=== PATIENT | male | born 1955 | race Caucasian/White ===

== ENCOUNTER → 2024-06-30 10:27 | Outpatient (REF) | payer MEDICARE, OTHER, SELFPAY | LOC: RAD 10:27 | PROVIDERS: ATTENDING PHYSICIAN Physician Assistant | DX: G89.29 Other chronic pain (principal); M25.561 Pain in right knee; M25.562 Pain in left knee | CPT/HCPCS: 73564 ==

== ENCOUNTER → 2024-07-16 10:04 | Outpatient (REF) | payer MEDICARE, OTHER, SELFPAY | LOC: PAVMRI 10:04 | PROVIDERS: ATTENDING PHYSICIAN Orthopaedic Surgery; FAMILY PHYSICIAN Physician Assistant | DX: M25.562 Pain in left knee (principal) | CPT/HCPCS: 73721 ==

== ENCOUNTER 2024-09-06 06:21 | Outpatient (RCR) | payer MEDICARE, OTHER, SELFPAY | END 2024-09-06 23:59 | disposition home or self-care (01) | LOC: RPT 06:21 | PROVIDERS: ATTENDING PHYSICIAN Physician Assistant Medical; FAMILY PHYSICIAN Physician Assistant | DX: M17.0 Bilateral primary osteoarthritis of knee (principal); S83.232A Complex tear of medial meniscus, current injury, left knee, initial encounter; X58.XXXA Exposure to other specified factors, initial encounter; Z73.6 Limitation of activities due to disability | CPT/HCPCS: 97110; 97162 ==

== ENCOUNTER → 2024-09-08 07:13 | Outpatient (REF) | payer MEDICARE, OTHER, SELFPAY | LOC: RCS 07:13 | PROVIDERS: ATTENDING PHYSICIAN Internal Medicine Cardiovascular Disease; FAMILY PHYSICIAN Physician Assistant | DX: I48.0 Paroxysmal atrial fibrillation (principal); I10 Essential (primary) hypertension | CPT/HCPCS: 93306 ==

== ENCOUNTER → 2025-04-20 07:47 | Outpatient (REF) | payer MEDICARE, OTHER, SELFPAY | LOC: SDSPAT 07:47 | PROVIDERS: ATTENDING PHYSICIAN Internal Medicine Cardiovascular Disease; FAMILY PHYSICIAN Physician Assistant; OTHER PHYSICIAN Internal Medicine Cardiovascular Disease | DX: I48.0 Paroxysmal atrial fibrillation (principal) | CPT/HCPCS: 93005 ==

== ENCOUNTER 2025-04-23 09:27 | Day surgery (SDC) | payer MEDICARE, OTHER, SELFPAY ==
[2025-04-20 08:08] VITALS: BMI 36.5
--- NOTE | 2025-04-20 08:20 | HPS.HSE ---
Family Physician
-
Family Physician: INTERVIEWE UNKNOWN - PT NOT
Chief Complaint
-
Paroxysmal atrial fibrillation.
History of Present Illness
The patient is a 69 year old male presenting today for paroxysmal atrial fibrillation. The patient previously underwent pulmonary vein isolation for this diagnosis in May 2008. He was doing relatively well after this procedure, with
only one reported episode of atrial fibrillation in late 2019. This was in the setting of 4-5 diet sodas and a half bottle of whiskey daily. Since then, the patient has significantly lowered his diet soda and is making attempts to lessen his alcohol
intake. Within the last few days however, the patient reports that his atrial fibrillation has returned. He does report recently starting a new job which has been causing him additional stress, likely playing into this. He reports a wide variety of
symptoms associated with his arrhythmia, which include palpitations, nausea, lightheadedness, and fatigue. He is on current pharmacological therapy with Metoprolol Succinate. He was originally on pill in pocket oral anticoagulation. When his atrial
fibrillation recurred, he restarted Eliquis automatically twice a day. He is interested in pursuing with a cardioversion for further arrhythmia management. He denies any current complaints today such as chest pain, shortness of breath, vomiting,
diarrhea, dizziness, cough, sore throat, or fever.
Medical History
Past Medical History
Past Medical History: Reports Other
Additional Past Medical History:
1. Paroxysmal atrial fibrillation, status post pulmonary vein isolation 05/2008; pharmacological therapy with Metoprolol Succinate and oral anticoagulation with Eliquis.
2. Nonsustained ventricular tachycardia.
3. History of AV node reentry tachycardia.
4. Hypertension.
5. Hyperlipidemia.
6. Coronary artery disease with previous NSTEMI, status post PCI with drug-eluting stent to mid circumflex 04/2016.
7. Mild concentric left ventricular hypertrophy.
8. Mild aortic stenosis.
9. Pulmonary embolism 2007.
10. Obstructive sleep apnea, non-compliant with device.
11. GERD.
12. Nephrolithiasis.
13. Vertigo.
14. Multilevel degenerative disc disease.
15. Osteoarthritis.
16. Psoriasis.
17. Prediabetes.
18. Obesity, BMI 36.5.
19. Remote tobacco abuse.
20. Daily alcohol.
21. Cannibis dependence.
Past Surgical History: Reports Other
Additional Past Surgical History:
1. Pulmonary vein isolation.
2. PCI with drug-eluting stent to mid circumflex.
3. Colonoscopy.
Social History
Tobacco: Former Smoker (He is a former 1 pack per day cigarette smoker who quit tobacco altogether remotely.)
Alcohol: Daily (He consumes a 'couple' drinks daily. )
Drug: Marijuana (Occasional use reported. )
Personal:
Living: Other (with his in a 3 story home. )
Employment: Employed
Family History
Family History: Not pertinent
Allergies / Home Medications
Allergy/Medication List:
Home medications:
1. Amlodipine 5 mg p.o. daily.
2. Aspirin 81 mg p.o. daily.
3. Atorvastatin 80 mg p.o. daily.
4. Fiber-Tabs 2 tablets p.o. daily.
5. Eliquis 5 mg p.o. twice a day.
6. Losartan 100 mg p.o. daily.
7. Metoprolol Succinate 100 mg p.o. twice a day.
8. Multivitamin 1 tablet p.o. daily.
9. Pantoprazole 40 mg p.o. daily.
Allergies: No known allergies.
Review of Systems
-
A 12 point ROS was completed and negative except as noted: Yes
Physical Exam
Vital Signs
Blood pressure 127/92. Heart rate 93. Respirations 18. Pulse ox 94%, increasing to 98% with encouraged deep breathing.
Height 6 feet, 1 inch. Weight 125.6 kg. BMI 36.5.
Physical Exam
General: Well Developed, Well Nourished and No Apparent Distress
HEENT: NormoCephalic, Moist mucous membranes, Atraumatic and PERRLA
Respiratory: Clear
Cardiac: Irregular Rhythm
GI: Soft, Non Tender, Non Distended and Other (Obese. )
Musculoskeletal: Normal Gait & Station and Other (Trace sockline edema of bilateral lower extremities. Large hematoma noted on right upper arm. )
Skin: Warm and Dry
Neuro: AO x 3 and Nonfocal/grossly intact
Laboratory Results
-
EKG 04/20/2025: Atrial fibrillation with rapid ventricular response.
Echocardiogram 09/08/2024: Normal left ventricular chamber size. Normal left ventricular systolic function. Left ventricular ejection fraction is 60-65% by visual estimate. Normal regional wall motion. Mild concentric left ventricular hypertrophy.
Normal diastolic function. Normal right ventricular size and function. Mild aortic stenosis. Peak gradient 33 mmHg/Mean 17 mmHg; the estimated aortic valve area is 1.7 cm2. Compared to prior study dated 05/21/2020, mild aortic stenosis is now present
Stress test 05/21/2020: Exercise nuclear stress test reveals no evidence of ischemia or scar. Normal LV size and function. Ejection fraction is 64%. Overall, low risk stress test.
Impression/Plan
-
IMPRESSION/PLAN:
1. Paroxysmal atrial fibrillation: The patient is in need of a cardioversion with Dr. Carrie Cates on 04/23/2025. The benefits and risks of the procedure have been explained to the patient. The patient understands these risks and wishes to
proceed. He is aware to continue his Eliquis uninterrupted prior to his procedure.
== END 2025-04-23 11:15 | disposition home or self-care (01) ==
LOC: CATH 09:27
PROVIDERS: ATTENDING PHYSICIAN Internal Medicine Cardiovascular Disease; FAMILY PHYSICIAN Physician Assistant; OTHER PHYSICIAN Internal Medicine Cardiovascular Disease
DX: I48.0 Paroxysmal atrial fibrillation (principal); Z53.09 Procedure and treatment not carried out because of other contraindication; E66.9 Obesity, unspecified; E78.5 Hyperlipidemia, unspecified; F12.90 Cannabis use, unspecified, uncomplicated; G47.33 Obstructive sleep apnea (adult) (pediatric); I10 Essential (primary) hypertension; I25.10 Atherosclerotic heart disease of native coronary artery without angina pectoris; I25.2 Old myocardial infarction; I35.0 Nonrheumatic aortic (valve) stenosis; M19.90 Unspecified osteoarthritis, unspecified site; Z68.36 Body mass index [BMI] 36.0-36.9, adult; Z87.891 Personal history of nicotine dependence; Z79.01 Long term (current) use of anticoagulants; Z79.82 Long term (current) use of aspirin; Z79.899 Other long term (current) drug therapy; Z86.711 Personal history of pulmonary embolism; Z87.442 Personal history of urinary calculi; Z95.5 Presence of coronary angioplasty implant and graft; R42 Dizziness and giddiness; L40.9 Psoriasis, unspecified; R73.03 Prediabetes
CPT/HCPCS: 93005